=== PATIENT | female | born 1970 | race Two or more races ===

== ENCOUNTER 2017-06-08 23:23 | Emergency (ER) | payer OTHER ==
[~2017-06-08] VITALS: Ht 165.1 cm; Wt 74.8 kg
--- NOTE | 2017-06-08 23:30 | NUR ---
TO BED 4 A 46 YO FEMALE BIBSELF W C/O "CP/NUMBNESS/HEADACHES SINCE THIS AFTERNOOON." NAD NOTED. VSS. BREATHING EVEN AND UNLABORED. NONDIAPHORETIC. GOWNED. COMFORT MEASURES RENDERED.
--- NOTE | 2017-06-08 23:38 | NUR ---
SYNCHRONIZER KEN AT BEDSIDE TO EVAL.
--- NOTE | 2017-06-08 23:50 | NUR ---
URINE COLLECTED VIA CLEAN CATCH AND PICKED UP BY LAB.
[2017-06-08] MEDS ORDERED: IBUPROFEN 600 MG TABLET PO ONE (23:51)
--- NOTE | 2017-06-08 23:53 | NUR ---
MEDICATED PATIENT ORDERED.
[2017-06-09] MEDS ORDERED: IBUPROFEN 600 MG TABLET PO ONE
[2017-06-09 00:03] LABS: APPEARANCE,URINE CLEAR (CLEAR); BILIRUBIN,URINE NEGATIVE (NEGATIVE); BLOOD, URINE TRACE-INTA Ery/uL (NEGATIVE); COLOR,URINE OTHER (YELLOW); KETONES,URINE NEGATIVE (NEGATIVE); LEUKOCYTE ESTERASE ,URINE NEGATIVE (NEGATIVE); NITRITE, URINE NEGATIVE (NEGATIVE); PH,URINE 7.5 (5.0-8.0); PROTEIN,URINE NEGATIVE (NEGATIVE); UGLUCOSE NEGATIVE (NEGATIVE); UROBILINOGEN,URINE 0.2 EU/dL (0.2)
[2017-06-09 00:16] LABS: BACTERIA,URINE None seen /HPF (None Seen); RBC,URINE NONE SEEN /HPF (0-2); SQUAMOUS EPITHELIAL CELL,UR Few /HPF (None Seen); WBC,URINE 0-2 /HPF (0-3)
[2017-06-09 01:01] VITALS: BP 121/78
== END 2017-06-09 01:02 | disposition home or self-care (01) ==
LOC: ER 23:27
DX: F41.9 Anxiety disorder, unspecified (principal)
CPT/HCPCS: 81001; 82962; 84703; 93005; 99285; A4606; Z7610; 81000-TC

== ENCOUNTER 2017-12-14 18:51 | Emergency (ER) | payer OTHER ==
[~2017-12-14] VITALS: Ht 167.6 cm; Wt 65.8 kg
--- NOTE | 2017-12-14 19:37 | NUR ---
DR DAVID AT BEDSIDE FOR EVAL.
--- NOTE | 2017-12-14 19:48 | NUR ---
IV LINE STARTED BLOOD DRAWN AND SENT TO LAB.
[2017-12-14 19:52] LABS: BASOPHILS # (AUTO) 0.1 /CMM (0.0-0.2); BASOPHILS % (AUTO) 1.1 % (0.0-2.0); HEMATOCRIT 41 % (33-45); HEMOGLOBIN 14.1 g/dL (11.5-14.8); LYMPHOCYTES # (AUTO) 2.4 /CMM (0.8-4.8); LYMPHOCYTES % (AUTO) 34.8 % (20.0-44.0); MEAN CORPUSCULAR HGB CONC 35 g/dl (31.0-36.0); MEAN CORPUSCULAR VOLUME 89 fL (82-100); MONOCYTES # (AUTO) 0.4 /CMM (0.1-1.30); MONOCYTES % (AUTO) 6.3 % (2.0-12.0); NEUTROPHILS # (AUTO) 3.9 /CMM (1.8-8.9); NEUTROPHILS % (AUTO) 54.8 % (43.0-81.0); PLATELET COUNT (AUTO) 288 /CMM (150-450); RDW COEFFICIENT OF VARIATION 12.4 (11.5-15.0); RED BLOOD CELL COUNT(AUTO) 4.58 MIL/uL (4.0-5.2)
[2017-12-14] MEDS ORDERED: HYDROCODONE/APAP 10/325MG 1 EA TABLET ONE (19:53)
[2017-12-14] MEDS ORDERED: ONDANSETRON 4 MG TAB.RAPDIS ONE (19:53)
[2017-12-14] MEDS ORDERED: ONDANSETRON 4 MG TAB.RAPDIS SL ONE (20:00)
[2017-12-14] MEDS ORDERED: HYDROCODONE/APAP 10/325MG 1 EA TABLET PO ONE (20:00)
[2017-12-14 20:02] LABS: CALCIUM, SERUM 9.3 mg/dL (8.5-10.1); CREATININE 0.8 mg/dL (0.6-1.3); POTASSIUM 3.7 mmol/L (3.5-5.1)
[2017-12-14 20:06] LABS: INR 0.96 (0.85-1.15)
[2017-12-14 20:11] LABS: TROPONIN I 0.024 ng/mL (0.00-0.056)
--- NOTE | 2017-12-14 20:15 | NUR ---
RADIOLOGY AT BEDSIDE FOR CHEST XRAY.
[2017-12-14] MEDS ORDERED: KETOROLAC TROMETHAMINE 15 MG/ML VIAL ONE (20:50)
[2017-12-14] MEDS ORDERED: KETOROLAC TROMETHAMINE INJ 30 MG/ML VIAL IV ONE (21:00)
--- NOTE | 2017-12-14 21:20 | NUR ---
Patient discharged to home in stable condition. Written and verbal after care instructions given. Patient verbalizes understanding of instruction.IV removed. Catheter intact and site benign. Pressure and 4x4 applied to site. No bleeding noted.
[2017-12-14 21:21] VITALS: BP 132/84
== END 2017-12-14 21:21 | disposition home or self-care (01) ==
LOC: ER 18:52
DX: R07.89 Other chest pain (principal); E11.9 Type 2 diabetes mellitus without complications; F41.9 Anxiety disorder, unspecified; E78.5 Hyperlipidemia, unspecified; Z79.84 Long term (current) use of oral hypoglycemic drugs
CPT/HCPCS: 36415; 71045-TC; 80048-TC; 84484-TC; 85025-TC; 85730-TC; A4606; J1885; Q0162; Z7610